=== PATIENT | female | born 1945 | race Caucasian/White ===

== ENCOUNTER 2023-08-25 22:58 | Emergency (ER) | payer MEDICARE, SELFPAY ==
--- NOTE | 2023-08-25 | ECG_ITS ---
Test Reason : FALL Blood Pressure : / mmHG Vent. Rate : 071 BPM Atrial Rate : 071 BPM P-R Int : 200 ms QRS Dur : 080 ms QT Int : 374 ms P-R-T Axes : 013 -15 -07 degrees QTc Int : 406 ms Normal sinus rhythm Minimal voltage criteria for LVH, may be normal variant ( R in aVL ) Borderline ECG No previous ECGs available Referred By: Generic ED Physician Electronically Signed By:RASTA LYNCH
--- NOTE | ~2023-08-25 | CT_ITS ---
EXAMINATION: CT HEAD WITHOUT CONTRAST CT CERVICAL SPINE WITHOUT CONTRAST CLINICAL INFORMATION: Fall. Pain. COMPARISON: None available. TECHNIQUE: Contiguous axial imaging was performed through the head and cervical spine without intravenous administration of contrast. Sagittal and coronal reformatted images also obtained. This CT examination was performed using dose optimization techniques as appropriate, variously including the following: *Automated exposure control *Adjustment of mA and/or kV according to patient size (this includes techniques or standardized protocols for targeted exams where dose is matched to indication/reason for exam; i.e. extremities or head) *Use of iterative reconstruction technique DLP: 566 mGy-cm FINDINGS: There is cerebral volume loss with prominence of the lateral and the third ventricles. The cortical sulci are widened appropriately. The fourth ventricle and basal cisterns are normally outlined. There is moderate bilateral periventricular and central white matter diminished attenuation. There is no acute territorial defect, hemorrhage or midline shift. The extra-axial spaces are unremarkable. Calvarium: Intact. Maxillofacial sinuses and mastoids: Clear as visualized. Cervical spine: The alignment is normal. There is diffuse mild cervical disc degenerative change with loss of disc space, endplate change and posterior osteophytes associated with diffuse facet osteoarthritic hypertrophic change with multilevel minimal spinal canal and mild neuroforaminal narrowing. The bony structures are osteopenic. No fracture is seen. There is a 1.3 cm low-density left thyroid nodule. The visualized upper lung lyle are clear. CT/CT cervical spine wo IV con IMPRESSION: 1. No acute intracranial process seen. 2. Moderate cerebral volume loss with chronic small vessel ischemic changes. 3. There is no acute cervical spine fracture or malalignment. There are degenerative disc changes and facet joint arthropathy throughout cervical spine.
--- NOTE | ~2023-08-25 | XR_ITS ---
EXAMINATION: XR SHOULDER, LEFT CLINICAL INFORMATION: Fall. Pain. COMPARISON: None available. TECHNIQUE: AP external rotation, Grashey, scapular Y, and axillary views of the left shoulder. FINDINGS: The bone mineralization is normal. There is mild to moderate acromioclavicular degenerative change with loss of joint space. There is a bony projection from the inferior acromion on. No fracture is seen. Soft tissues are unremarkable. XR/XR shoulder LT min 2V IMPRESSION: 1. No fracture or dislocation. 2. Acromioclavicular degenerative change.
[2023-08-25 23:10] VITALS: BP 138/80; PULSE 79; O2SAT 95
[2023-08-25 23:17] VITALS: BP 138/79; PULSE 72; RESP 18; O2SAT 95; BMI 22.6
[2023-08-25 23:27] VITALS: TEMP 36.8
[2023-08-25 23:27] LABS: MANUAL DIFF FLAG NO
[2023-08-25 23:28] LABS: Basophils Percent Auto 0.2 % (0-2); Eosinophils Absolute Auto 0.1 X10*3/uL (0.0-0.4); Eosinophils Percent Auto 0.6 % (0-4); Hematocrit 38.5 % (37.0-47.0); Hemoglobin 12.8 g/dl (12.0-16.0); Imm Gran Abs Auto 0.03 X10*3/uL (0.00-0.03); Imm Gran Pct Auto 0.3 % (0.0-0.4); Lymphocytes Absolute Auto 1.6 X10*3/uL (1.2-4.9); Lymphocytes Percent Auto 17.4 % (20-40); Mean Corpuscular HGB Conc 33.2 g/dl (31.0-35.0); Mean Corpuscular Hemoglobin 29.6 pg (27.0-33.0); Mean Corpuscular Volume 88.9 fL (80.0-98.0); Mean Platelet Volume 9.4 fL (9.4-12.3); Monocytes Absolute Auto 0.6 X10*3/uL (0.1-1.2); Monocytes Percent Auto 6.1 % (2-11); Neutrophils Absolute Auto 6.9 x10*3/uL (2.0-8.3); Neutrophils Percent Auto 75.4 % (45-73); Platelet Count 202 X10*3/uL (160-400); Red Blood Count 4.33 X10*6/uL (4.20-5.50); Red Cell Distribution Width 12.9 % (11.0-16.0); White Blood Count 9.1 X10*3/uL (4.8-10.8)
--- OUTSIDE RECORDS SUMMARY | 2023-08-25 23:33 | XMS_ITS | Continuity of Care Document ---
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 Name Role Phone Rosa Mattson NP Primary Care Physician [phone] Encounter [facility] Date(s): 03/22/23 - 03/23/[address] [address]- Encounter Diagnosis UTI (urinary tract infection)(Final) - 03/23/23 Discharge Disposition: A-D/C Home Attending Physician: Kvng Bethea MD Admitting Physician: Kvng Bethea MD Referring Physician: Not on Staff, Referring MD Allergies, Adverse Reactions, Alerts Substance Reaction Severity Status iodine Allergy to penicillin Active Immunizations Given and Recorded Vaccine Date Status Refusal Reason SARS-CoV-2 (COVID-19) mRNA BNT-162b2 vac 10/27/20 Given Medications ARIPiprazole 2 mg oral tablet 2 mg, 1, tablet, By Mouth, Daily, Maintenance, 03/23/23 8:07:00 EDT, Partial fill upon patient request if the prescription is for a schedule II opioid drug. Start Date: 03/23/23 Status: Ordered cefpodoxime 200 mg oral tablet 1 tablet = 200 mg, By Mouth, 2 times a day, for 10 days, # 20 tablet, 0 Refills, Acute 04/02/23 1:02:00 EDT, 03/23/23 1:02:00 EDT, Tablet, Partial fill upon patient request if the prescription is fora schedule II opioid drug. Start Date: 03/23/23 Stop Date: 04/02/23 Status: Ordered lovastatin 40 mg oral tablet 1 tablet = 40 mg, By Mouth, Daily at bedtime, Maintenance, 03/23/23 8:07:00 EDT, Tablet, Partial fill upon patient request if the prescription is for a schedule II opioid drug. Start Date: 03/23/23 Status: Ordered sertraline 25 mg oral tablet 1 tablet = 25 mg, By Mouth, Daily, Maintenance, 03/23/23 8:08:00 EDT, Tablet, Partial fill upon patient request if the prescription is for a schedule II opioid drug. Start Date: 03/23/23 Status: Ordered Results Radiology Reports * Exam Date Time Procedure Performing Provider Status 03/22/23 10:27 PM Chest 2 Views Frontal and Lat Juan Connolly; Auth (Verified) Notes: (Chest 2 Views Frontal and Lat) Reason For Exam: Shortness of Breath RESULT: Chest 2 Views Frontal and Lat Chest 2 Views Frontal and Lat Hx of Present Illness: ambulating, fall from standing, lost balance hit occiput with hematoma, +blood but controlled, no loc, no thinners; Reason: Shortness of Breath; Clinical Question(s): CHF COMPARISON: None. FINDINGS: LINES AND TUBES: None. LUNGS AND PLEURA: Clear lungs. Normal pulmonary vascularity. No pleural effusion. No pneumothorax. HEART, MEDIASTINUM AND JOHN: Heart is normal in size. Normal mediastinal and hilar contour. BONES AND SOFT TISSUES: No acute abnormality. IMPRESSION: No acute abnormality. WSN: [id number] Ordering Physician: Dez June Dictated By: Willy Vaughn MD Dictated Date/Time: 03/22/23 10:38 p Reviewed By: Willy Vaughn MD Signed By: Willy Vaughn MD Signed Date/Time: 03/22/23 10:38 pm Transcribed By: ANDRAE Transcribed Date/Time: 03/22/23 10:38 pm * Exam Date Time Procedure Performing Provider Status 03/22/23 6:[address] Cervical Spine W/O Contrast Domonique Carrillo; Auth (Verified) Notes: (CT Cervical Spine W/O Contrast) Reason For Exam: Neck trauma, dangerous injury mechanism;Trauma RESULT: CT Cervical Spine W/O Contrast CT Head/Brain W/O Contrast, CT Cervical Spine W/O Contrast INDICATION: Hx of Present Illness: ambulating, fall from standing, lost balance hit occiput with hematoma, +blood but controlled, no loc, no thinners; Reason: Trauma; Clinical Question(s): Subarachnoid Hemorrhage; Order Comment: TECHNIQUE: Noncontrast head CT using axial technique was reconstructed in axial and coronal planes.Noncontrast spiral CT through the cervical spine was formatted in 3 planes. Automatic tube modulation was used for the cervical spine and iterative dose reconstruction was used for both the head and cervical spine to optimize scan parameters and image quality. CTDIvol Body: 9.60 mGy, DLP Body: 263 mGy*cm. CTDIvol Head: 39.60 mGy, DLP Head: 672 mGy*cm. COMPARISON: None. FINDINGS: Business Analyst Project Manager View Findings, Lines and Tubes: None. BRAIN AND EXTRA-AXIAL SPACES: No parenchymal hemorrhage, midline shift, or mass effect. Paredes-white matter differentiation is wellpreserved. No acute infarct. Mild prominence of the ventricles and sulci consistent with parenchymal volume loss. Moderate low-density white matter changes. No subarachnoid hemorrhage. No subdural or epidural collection. CALVARIUM, SKULL BASE, AND SOFT TISSUES: No fractures or suspicious bony lesions. The paranasal sinuses and mastoid air cells are clear. Visualized orbits and globes are intact. The extracranial soft tissues are unremarkable. CERVICAL SPINE: There is no evidence of acute fracture or subluxation. Mild multilevel degenerative disc space narrowing and end plate irregularity. OTHER BONES: No acute abnormality. CERVICAL SOFT TISSUES AND LUNG APICES: Normal soft tissues. Visualized lung apices are clear. IMPRESSION: No acute abnormality of the head or cervical spine. WSN: [id number] Ordering Physician: Dez June Dictated By: Anastasiya Thornton MD Dictated Date/Time: 03/22/23 6:52 pm Reviewed By: Anastasiya Thornton MD Signed By: Anastasiya Thornton MD Signed Date/Time: 03/22/23 6:52 pm Transcribed By: ANDRAE Transcribed Date/Time: 03/22/23 6:34 pm * Exam Date Time Procedure Performing Provider Status 03/22/23 6:[address] Head/Brain W/O Contrast Shana Carrillo; Auth (Verified) Notes: (CT Head/Brain W/O Contrast) Reason For Exam: Trauma RESULT: CT Head/Brain W/O Contrast CT Head/Brain W/O Contrast, CT Cervical Spine W/O Contrast INDICATION: Hx of Present Illness: ambulating, fall from standing, lost balance hit occiput with hematoma, +blood but controlled, no loc, no thinners; Reason: Trauma; Clinical Question(s): Subarachnoid Hemorrhage; Order Comment: TECHNIQUE: Noncontrast head CT using axial technique was reconstructed in axial and coronal planes.Noncontrast spiral CT through the cervical spine was formatted in 3 planes. Automatic tube modulation was used for the cervical spine and iterative dose reconstruction was used for both the head and cervical spine to optimize scan parameters and image quality. CTDIvol Body: 9.60 mGy, DLP Body: 263 mGy*cm. CTDIvol Head: 39.60 mGy, DLP Head: 672 mGy*cm. COMPARISON: None. FINDINGS: Business Analyst Project Manager View Findings, Lines and Tubes: None. BRAIN AND EXTRA-AXIAL SPACES: No parenchymal hemorrhage, midline shift, or mass effect. Paredes-white matter differentiation is wellpreserved. No acute infarct. Mild prominence of the ventricles and sulci consistent with parenchymal volume loss. Moderate low-density white matter changes. No subarachnoid hemorrhage. No subdural or epidural collection. CALVARIUM, SKULL BASE, AND SOFT TISSUES: No fractures or suspicious bony lesions. The paranasal sinuses and mastoid air cells are clear. Visualized orbits and globes are intact. The extracranial soft tissues are unremarkable. CERVICAL SPINE: There is no evidence of acute fracture or subluxation. Mild multilevel degenerative disc space narrowing and end plate irregularity. OTHER BONES: No acute abnormality. CERVICAL SOFT TISSUES AND LUNG APICES: Normal soft tissues. Visualized lung apices are clear. IMPRESSION: No acute abnormality of the head or cervical spine. WSN: [id number] Ordering Physician: Dez June Dictated By: Anastasiya Thornton MD Dictated Date/Time: 03/22/23 6:52 pm Reviewed By: Anastasiya Thornton MD Signed By: Anastasiya Thornton MD Signed Date/Time: 03/22/23 6:52 pm Transcribed By: ANDRAE Transcribed Date/Time: 03/22/23 6:34 pm Vital Signs Most recent to oldest [Reference Range]: 1 2 3 Oxygen Saturation [94-100 %] 97 % (03/23/23 7:30 AM) 99 % (03/23/23 4:15 AM) 97 % (03/23/23 1:01 AM) Pulse Rate [55-90 bpm] 95 bpm *H* (03/23/23 7:30 AM) 85 bpm (03/23/23 4:15 AM) 87 bpm (03/23/23 1:01 AM) Blood Pressure [90-138/55-84 mm Hg] 109/85mm Hg (03/23/23 7:30 AM) 142/67mm Hg *H* (03/23/23 4:15 AM) 131/68mm Hg (03/23/23 1:01 AM) Respiratory Rate [16-30 br/min] 18 br/min (03/23/23 7:30 AM) 19 br/min (03/23/23 4:15 AM) 18 br/min (03/23/23 1:01 AM) Temperature [96.8-100.4 DegF] 97.9 DegF (03/23/23 1:01 AM) 98.5 DegF (03/22/23 5:14 PM) Mode of Delivery (Oxygen) Room air (03/23/23 7:30 AM) Room air (03/23/23 4:15 AM) Room air (03/23/23 1:01 AM) Blood pressure sites Arm, right (03/23/23 7:30 AM) Arm, right (03/23/23 4:15 AM) Arm, right (03/23/23 1:01 AM) Temperature Route Oral (03/23/23 1:01 AM) Oral (03/22/23 5:14 PM) EKG study * Event Display: EKG Authored Date: * Event Display: ECG 12-Lead Authored Date: Please click on pdf link to open report * Event Display: ECG 12-Lead Authored Date: Ventricular Rate: 82 BPM Atrial Rate: 82 BPM P-R Interval: 186 ms QRS Duration: 74 ms Q-T Interval: 370 ms QTC Calculation(Bazett): 432 ms P Dundas: 0 degrees R Dundas: -12 degrees T Dundas: -1 degrees Normal sinus rhythm Minimal voltage criteria for LVH, may be normal variant Borderline ECG When compared with ECG of 22-MAR-2023 17:38, MANUAL COMPARISON REQUIRED, DATA IS UNCONFIRMED Confirmed by HARMONY BEDOLLA MD () on 03/23/2023 10:18:09 AM [place]: HARMONY BEDOLLA MD * Event Display: ECG 12-Lead Authored Date: [id number] Please click on pdf link to open report * Event Display: ECG 12-Lead Authored Date: [id number] Ventricular Rate: 83 BPM Atrial Rate: 83 BPM P-R Interval: 192 ms QRS Duration: 70 ms Q-T Interval: 366 ms QTC Calculation(Bazett): 430 ms P Dundas: 9 degrees R Dundas: -14 degrees T Dundas: -4 degrees Normal sinus rhythm Minimal voltage criteria for LVH, may be normal variant ( R in aVL ) Borderline ECG No previous ECGs available Confirmed by HARMONY BEDOLLA MD () on 03/23/2023 10:19:12 AM [place]: HARMONY BEDOLLA MD Note * Kvng Bethea MD: PERFORM Event Display: Patient Education Leaflets Authored Date: [id number] Bladder Infection,??Female (Adult) ?? [id number] Bladder Infection,??Female (Adult) Urine normally doesn't have any germs (bacteria) in it. But bacteria can get into the urinary tractfrom the skin around the rectum. Or they can travel in the blood from other parts of the body. Oncethey are in your urinary tract, they can cause infection in these areas: ??? The urethra (urethritis) ??? The bladder (cystitis) ??? The kidneys (pyelonephritis) The most common place for an infection is in the bladder. This is called a bladder infection. This is one of the most common infections in women because women have a shorter urethra than men. Bacteria have a shorter distance to travel to reach the bladder.. Women who have gone through menopause also lose the protection from estrogen that lowers the chance of getting a UTI. And some women are at higher risk because of their genes. Most bladder infections are easily treated. They are not serious unless the infection spreads to the kidney. The terms bladder infection, UTI, and cystitis are often used to describe the same thing. But they are not always the same. Cystitis is an inflammation of the bladder. The??most common cause of cystitis is an infection. Symptoms The infection causes inflammation in the urethra and bladder. This causes many of the symptoms. Themost common symptoms of a bladder infection are: ??? Pain or burning when urinating ??? Having to urinate more often than normal ??? Urgent need to urinate ??? Only a small amount of urine comes out ??? Blood in urine ??? Belly (abdominal) discomfort. This is often in the lower belly above the pubic bone. ??? Lower back pain ??? Cloudy urine ??? Strong- or bad-smelling urine ??? Unable to urinate(urinary retention) ??? Unable to hold urine in (urinary incontinence) ??? Fever ??? Loss of appetite ??? Confusion (in older adults) ?? Causes Bladder infections are not contagious. You can't get one from someone else, from a toilet seat, or from sharing a bath. The most common cause of bladder infections is bacteria from the bowels. The bacteria get onto the skin around the opening of the urethra. From there, they can get into the urine. Then they travel upto the bladder, causing inflammation and infection. This often happens because of: ??? Wiping incorrectly after urinating. Always wipe from front to back. ??? Bowel incontinence ??? . Duringpregnancy urinary tract changes raise the risk for infection. ??? Procedures such as having a catheter put in ??? Older age ??? Not emptying your bladder. This can give bacteria a chance to grow in your urine. ??? Fluid loss (dehydration) ??? Constipation ??? Having sex ??? Using a diaphragm for control? Treatment Bladder infections are diagnosed by a urine test and urine culture. They are treated with antibiotics. They often??clear up quickly without problems. Treatment helps prevent a more serious kidney infection. ?? Medicines Medicines can help in the treatment of a bladder infection: ??? Take antibiotics until they are used up, even if you feel better. It's important to finish them to make sure the infection has cleared.??? You can use acetaminophen or ibuprofen for pain, fever, or discomfort, unless another medicine was prescribed. If you have long-term (chronic) liver or kidney disease, talk with your healthcare??provider before using??these medicines. Also talk with your provider if you've ever had a stomach ulcer or GI (gastrointestinal) bleeding, or are taking blood-thinner medicines. ??? If you are given??phenazopydridine to reduce burning with urination, it will make your urine a bright orange color. This can stain clothing. ?? Care and prevention These self-care steps can help prevent future infections: ??? Drink plenty of fluids. This helps toprevent dehydration and flush out your bladder. Do this??unless you must restrict fluids for other health reasons, or your healthcare provider told you not to. ??? Clean yourself correctly after going to the bathroom. Wipe from front to back after using the toilet. This helps prevent the spread of bacteria. ??? Urinate more often. Don't try to hold urine in for a long time. ??? Wear loose-fittingclothes and cotton underwear. Don't wear tight- fitting pants. ??? Improve your diet and prevent constipation. Eat more fresh fruits and vegetables, and??fiber. Eat less junk foods and fatty foods. ??? Don't have sex until your symptoms are gone. ??? Don't have caffeine, alcohol, and spicy foods. These can irritate your bladder. ??? Urinate right after you have sex to flush out your bladder. ??? If you use control pills and have frequent bladder infections, discuss it with your healthcare provider. ?? Follow-up care Call your healthcare provider if all symptoms are not gone after 3 days of treatment. This is especially important if you have repeat infections. If a culture was done, you will be told if your treatment needs to be changed. If directed, you cancall??to find out the results. If X-rays were done, you will be told if the results will affect your??treatment. ?? Call 911 Call 911 if any of the following occur: ??? Trouble breathing ??? Hard to wake up or??confusion ???Fainting (loss of consciousness) ??? Fast heart rate ?? When to get medical advice Call your healthcare provider right away if any of these occur: ??? Fever of 100.4??F (38.0??C) or higher, or as directed by your healthcare provider ??? Symptoms are not better??after 3 days of treatment ??? Symptoms get worse or you have new symptoms ??? Back or belly pain that gets worse ??? Repeated vomiting, or unable to keep medicine down ??? Weakness or dizziness ??? Vaginal discharge ??? Pain, redness, or swelling in the outer vaginal area (labia) ?? Last Reviewed Date: 2021 ?? [id number] [employer]. All rights reserved. This information is not intended as a substitute for professional medical care. Always follow your healthcare professional's instructions. ?? Patient Care team information Care Team Personnel Name: Rosa Mattson NP Position: [facility] Outreach Member Role: PCP Address: Address: [address] [facility] [place] [address]- Name: Aislinn Cohn RN Position: [facility] ED RN W/OE and Tasks Member Role: Patient Care Provider Name: Juli Bearden Position: [facility] ED [facility] Name: Kvng Bethea MD Position: [facility] Resident Member Role: Admitting Physician Address: Address: [address] [place] [address] [place] [address]-
--- OUTSIDE RECORDS SUMMARY | 2023-08-25 23:33 | XMS_ITS | Patient Health Record ---
Author Name Unknown 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 Name Role Phone Twila VALE, Rosa Primary Care Provider Johnathan Coffey Unavailable [phone] ALLERGIES Allergen (clinical drug ingredient) Drug/Non Drug Allergy documented on EMR Reaction Allergy Type Onset Date Status Iodine redness Drug Allergy Active Penicillin redness Drug Allergy Active latex redness Drug Allergy Active REASON FOR REFERRAL No Information MEDICATIONS Medication SIG (Take, Route, Frequency, Duration) Notes Start Date End Date Status Vitamin D 400 UNIT as directed Orally Active Calcium 500mg Twice a day vitamin d in calcium chews Active Lovastatin 40 MG 1 tablet with a meal Orally Once a day for 30 day(s) Active IMMUNIZATIONS Vaccine Route Administration Date Status Comme nts COVID-19 Pfizer BioNTech Vaccine Unknown 06/20/2021 Administered 1st 10/06/20 2nd 10/27/20 3rd 06/20/21 SOCIAL HISTORY Tobacco Use: Social History Observation Description Date Details (start date - stop date) Never Smoker NA - NA Sex Assigned At : Social History Observation Description Sex Assigned At Unknown Tobacco Use/Smoking Question Answer Notes Are you a: nonsmoker Additional Findings: Tobacco Non-User Current no n-smoker Alcohol Screen Question Answer Notes Did you have a drink containing alcohol in the p ast year? No Points 0 Interpretation Negative Tobacco use other than smoking: Question Answer Notes Are you an other tobacco user? No PROBLEMS Problem Type ICD Code Onset Dates Problem Status W/U Status Risk SNOMED Code Notes Problem Tinea unguium (B35.1) Active confirmed Tinea unguium (155442553) Problem Hallux valgus (acquired), left foot (M20.12) Active confirmed Acquired hallux valgus (31078830) Problem Hallux valgus (acquired), right foot (M20.11) Active confirmed Acquired hallux valgus (07359566) Problem Other hammer toe(s) (acquired), right foot (M20.41) Active confirmed Acquired hammer toe of right foot (19962622633 17687) Problem Venous insufficiency (I87.2) Active confirmed 60693479 Problem Dementia without behavioral disturbance, unspecified dementia type (F03.90) Active confirmed Dementia (79629508) VITAL SIGNS Blood pressure diastolic 80 mm Hg 02/09/2023 Height 4 ft 11 in in 02/09/2023 Blood pressure systolic 128 mm Hg 02/09/2023 Weight 160 lbs 02/09/2023 BMI 32.31 kg/m2 02/09/2023 Encounters Encounter Location Date Provider Diagnosis [facility] [address] [address] 02/09/2023 Johnathan Noble Tinea unguium B35.1 ; Pain in right toe(s) M79.674 ; Pain in left toe(s) M79.675 ; Hallux valgus (acquired), left foot M20.12 ; Hallux valgus (acquired), right foot M20.11 ; Other hammer toe(s) (acquired), right foot M20.41 ; Venous insufficiency I87.2 ; Tinea pedis B35.3 and Dementia without behavioral disturbance, unspecified dementia type F03.90 ASSESSMENTS Encounter Date Diagnosis Assessment Notes Treatment Notes Treatment Clinical Notes 02/09/2023 Tinea unguium (ICD-1 0 - B35.1) 02/09/2023 Pain in right toe(s) (ICD-10 - M79.674) 02/09/2023 Pain in left toe(s) (ICD-10 - M79.675) 02/09/2023 Hallux valgus (acquired), left foot (ICD-10 - M20.12) 02/09/2023 Hallux valgus (acquired), right foot (ICD-10 - M20.11) 02/09/2023 Other hammer toe(s) (acquired), right foot (ICD-10 - M20.41) 02/09/2023 Venous insufficiency (ICD-10 - I87.2) 02/09/2023 Tinea pedis (ICD-10 - B35.3) 02/09/2023 Dementia without behavioral disturbance, unspecified dementia type (ICD-10 - F03.90) PLAN OF TREATMENT Pending Test Test Name Order Date X ray : Foot, left 3V 02/08/2022 X ray : Foot, right 3V 02/08/2022 [id number] NAIL, 1-09/06/2013 [id number] NAIL, -09/19/2014 [id number] NAIL, -09/25/2015 [id number] NAIL, -09/15/2016 [id number] NAIL, -06/22/2017 Next Appt Details Provider Name:Johnathan Noble, 02/08/2024 11:00:00 AM, [address] [place] [address], [id number], Insurance Providers Payer Name Payer Address Payer Phone Subscriber Number Group Number Insured Name Patient Relationship to Insured Coverage Start Date Coverage End Date Medicare National Govt [facility] [address] [place] [address] [phone] [id number] Amaya Harley Self - patient is the insured [facility] [id number] [address] [place] [address] [id number] Andres Harley Spouse - patient is the spouse of the insured MEDICAL (GENERAL) HISTORY Medical History History ICD Code Arthritis Back pain breast cancer Hiatal hernia Measles Chicken pox Broken bones Dementia Surgical History Surgery Date(Month/Year) mastoidectomy 02/2012 colonoscopy & 09/06 lumpectomy 12/1993 Mammogram Screening 10/2021 Hospitalization History Reason Date(Month/Year) [facility] ER- kidney stones 09/22/20 Patient went to [facility] for low back pa in. 05/2014
--- OUTSIDE RECORDS SUMMARY | 2023-08-25 23:33 | XMS_ITS | Continuity of Care Document ---
Author Name Unknown Organization [facility] ter Address [address] [place] [id number]- Care Team Providers Care Plate Printer Name Role Phone Not on Staff, PCP Primary Care Physician Unavail able Encounter [facility] Date(s): 08/20/23 - 08/21/[address] [address]- Discharge Disposition: A-D/C AMA Attending Physician: Jaleel Lake DO Admitting Physician: Jaleel Lake DO Referring Physician: Not on Staff, Referring MD [...] opioid drug. Start Date: 03/23/23 Status: Ordered lovastatin 40 mg oral tablet [...] Exam Date Time Procedure Performing Provider Status 08/20/23 8:[address] Cervical Spine W/O Contrast Zandra Gamino; Auth (Verified) Notes: (CT Cervical Spine W/O Contrast) Reason For Exam: Neck trauma, dangerous injury mechanism;Other: RESULT: CT Cervical Spine W/O Contrast CT Head/Brain W/O Contrast, CT Cervical Spine W/O Contrast Hx of Present Illness: fall; Reason: Trauma; Clinical Question(s): Hematoma. TECHNIQUE: Incremental CT without contrast through the head was formatted in axial and coronal planes. Spiral CT without contrast through the cervical spine was formatted in 3 planes. Weight-based protocol using automatic tube modulation was used to optimize exposure parameters. COMPARISON: 06/01/2023, 03/31/2023. FINDINGS: Mild motion artifact. BRAIN and EXTRA-AXIAL SPACES: No parenchymal hemorrhage, midline shift or mass effect. Paredes-white matter differentiation is well preserved. No acute infarct. Negative insular ribbon sign. Atherosclerotic vascular calcification ofthe carotid arteries but negative hyperdense vessel sign. Mild prominence of the ventricles and sulci consistent with parenchymal volume loss. Moderate low-density white matter changes. No subarachnoid hemorrhage, subdural or epidural collections. CALVARIUM, SKULL BASE AND SOFT TISSUES: No fractures or suspicious bony lesions. The paranasal sinuses and mastoid air cells are clear. Status-post bilateral lens extraction. The extracranial soft tissues are unremarkable. CERVICAL SPINE: No fracture. No acute osseous abnormalities. Small sclerotic bone island in the left first rib, unchanged. Moderate, multilevel degenerative changes of the visualized spine. Grade 1 anterolisthesis of C4 on C5. Grade 1 anterolisthesis of C6 on C7. Normal alignment. No locked or perched facet. Intervertebral discs are normal. OTHER BONES: No acute abnormality. CERVICAL SOFT TISSUES AND LUNG APICES: Clear lung apices. Heterogeneous thyroid gland with an enlarged left lobe. There is a similar-appearing 2.8 cm (craniocaudal dimension) ill-defined hypodensity in the left lobe of the thyroid gland (304:35). IMPRESSION: Mild motion artifact. No acute intracranial abnormality. No acute fracture of the cervical spine. Similar appearing ill-defined hypodensity in the left lobe of the thyroid gland. Further evaluationand characterization with nonurgent ultrasound recommended if not previously performed. I have personally reviewed the images and I agree with this report. WSN: [id number] Ordering Physician: Jaleel Lake Dictated By: Humphrey Medina MD Dictated Date/Time: 08/20/23 9:09 pm Reviewed By: Hany Nunez MD Signed By: Hany Nunez MD Signed Date/Time: 08/20/23 9:14 pm Transcribed By: ANDRAE Transcribed Date/Time: 08/20/23 8:41 pm * Exam Date Time Procedure Performing Provider Status 08/20/23 8:[address] Head/Brain W/O Contrast Zandra Rodriguez; Auth (Verified) Notes: (CT Head/Brain W/O Contrast) Reason For Exam: Trauma RESULT: CT Head/Brain W/O Contrast CT Head/Brain W/O Contrast, CT Cervical Spine W/O Contrast Hx of Present Illness: fall; Reason: Trauma; Clinical Question(s): Hematoma. TECHNIQUE: Incremental CT without contrast through the head was formatted in axial and coronal planes. Spiral CT without contrast through the cervical spine was formatted in 3 planes. Weight-based protocol using automatic tube modulation was used to optimize exposure parameters. COMPARISON: 06/01/2023, 03/31/2023. FINDINGS: Mild motion artifact. BRAIN and EXTRA-AXIAL SPACES: No parenchymal hemorrhage, midline shift or mass effect. Paredes-white matter differentiation is well preserved. No acute infarct. Negative insular ribbon sign. Atherosclerotic vascular calcification ofthe carotid arteries but negative hyperdense vessel sign. Mild prominence of the ventricles and sulci consistent with parenchymal volume loss. Moderate low-density white matter changes. No subarachnoid hemorrhage, subdural or epidural collections. CALVARIUM, SKULL BASE AND SOFT TISSUES: No fractures or suspicious bony lesions. The paranasal sinuses and mastoid air cells are clear. Status-post bilateral lens extraction. The extracranial soft tissues are unremarkable. CERVICAL SPINE: No fracture. No acute osseous abnormalities. Small sclerotic bone island in the left first rib, unchanged. Moderate, multilevel degenerative changes of the visualized spine. Grade 1 anterolisthesis of C4 on C5. Grade 1 anterolisthesis of C6 on C7. Normal alignment. No locked or perched facet. Intervertebral discs are normal. OTHER BONES: No acute abnormality. CERVICAL SOFT TISSUES AND LUNG APICES: Clear lung apices. Heterogeneous thyroid gland with an enlarged left lobe. There is a similar-appearing 2.8 cm (craniocaudal dimension) ill-defined hypodensity in the left lobe of the thyroid gland (304:35). IMPRESSION: Mild motion artifact. No acute intracranial abnormality. No acute fracture of the cervical spine. Similar appearing ill-defined hypodensity in the left lobe of the thyroid gland. Further evaluationand characterization with nonurgent ultrasound recommended if not previously performed. I have personally reviewed the images and I agree with this report. WSN: [id number] Ordering Physician: Jaleel Lake Dictated By: Humphrey Medina MD Dictated Date/Time: 08/20/23 9:09 pm Reviewed By: Hany Nunez MD Signed By: Hany Nunez MD Signed Date/Time: 08/20/23 9:14 pm Transcribed By: ANDRAE Transcribed Date/Time: 08/20/23 8:41 pm Vital Signs Most recent to oldest [Reference Range]: 1 2 3 Oxygen Saturation [94-100 %] 100 % (08/21/23 12:14 AM) 98 % (08/20/23 10:57 PM) 99 % (08/20/23 7:56 PM) Pulse Rate [55-90 bpm] 88 bpm (08/21/23 12:14 AM) 80 bpm (08/20/23 10:57 PM) 82 bpm (08/20/23 7:56 PM) Blood Pressure [90-138/55-84 mm Hg] 121/103mm Hg (08/21/23 12:14 AM) 115/49mm Hg (08/20/23 10:57 PM) 141/58mm Hg *H* (08/20/23 7:56 PM) Respiratory Rate [16-30 br/min] 18 br/min (08/21/23 12:14 AM) 18 br/min (08/20/23 10:57 PM) 18 br/min (08/20/23 7:56 PM) Temperature [96.8-100.4 DegF] 97.5 DegF (08/21/23 12:14 AM) 98.1 DegF (08/20/23 10:57 PM) 98.1 DegF (08/20/23 7:56 PM) Mode of Delivery (Oxygen) Room air (08/21/23 12:14 AM) Room air (08/20/23 10:57 PM) Room air (08/20/23 7:56 PM) Blood pressure sites Arm, right (08/21/23 12:14 AM) Arm, left (08/20/23 10:57 PM) Arm, left (08/20/23 7:56 PM) Temperature Route Oral (08/21/23 12:14 AM) Oral (08/20/23 10:57 PM) Oral (08/20/23 7:56 PM) Social History Social History Type Response Sex Female Note * Jaleel Lake DO: PERFORM, SIGN, VERIFY Event Display: Patient Education Handout Authored Date: * Jaleel Lake DO: PERFORM Event Display: Patient Education Leaflets Authored Date: Fall??Prevention ?? [id number] Fall??Prevention Falls often take place due to slipping, tripping, or losing your balance. Millions of people fall every year and injure themselves.??Among older adults in the [place] falls are the most common cause oftraumatic brain injuries. Every 20 minutes, an older adult dies from a fall. Here are ways to reduce your risk of falling again: ??? Think about your fall. Was there anything that caused your fall that can be fixed, removed, or replaced? Make your home safe by keeping walkways clear of objects you may trip over, such as electrical cords. ??? Use nonslip pads under rugs. Don't use area rugs orsmall throw rugs. ??? Use nonslip mats in bathtubs and showers. ??? Hang grab rails by the toilet and inside and outside the shower. ??? Install handrails and lights on staircases. The handrails should be on both sides of the stairs. ??? Use night lights. ??? Don't walk in poorly lit areas. ??? Don't stand on chairs or wobbly ladders. ??? Use care when reaching overhead or looking up.??This position can cause a loss of balance. ??? Be sure your shoes fit well, are in good condition, and have non slip bottoms.? Wear shoes both inside and outside of your home. Don't go barefoot or wear slippers. ??? Be cautious when going up and down stairs, curbs, and when walking on uneven sidewalks. ??? If your balance is poor, consider using a cane or walker. Talk with your healthcare provider abouthaving a balance assessment. ??? If your fall was related to alcohol use, stop or limit alcohol intake.??Ask your provider for help if you think you may overuse alcohol and can't stop. ??? If your fall was related to use of sleeping medicines, talk with your provider about this.??You may need to reduce your dosage at bedtime if you wake up during the night to go to the bathroom.? To reducethe need for nighttime bathroom trips: o Don't drink fluids for several hours before going to bed oEmpty your bladder before going to bed o Men can keep a urinal at the bedside ??? Stay as active asyou can. Balance, flexibility, strength, and endurance all come from exercise. They all play a rolein preventing falls. Ask your provider which types of activity are right for you. Try to do some type of exercise every day. ??? Get your eyes checked once a year or more often if your vision changes??? If you have pets, know where they are before you stand up or walk so you don't trip over them. ??? Go over all your medicines with a pharmacist or other provider. This is to see if any of them could make you more likely to fall. Have this type of medicine review at least once every year. ??? Ifyour provider advises a new medicine, ask if the side effects will affect your balance. ??? Don't move quickly from one position to another. For instance, don't stand up fast from sitting. This can cause dizziness and may lead to a fall. ??? Sit down when putting on pants, socks, and shoes. This will make you less likely to lose your balance and fall. ??? Always let your provider know if you havefallen since your last visit. ??? Contact your provider right away if you're having balance problems or falling more often. Last Reviewed Date: 2021 ?? [id number] [employer]. All rights reserved. This information is not intended as a substitute for professional medical care. Always follow your healthcare professional's instructions. ?? Patient Care team information Care Team Personnel Name: Not on Staff, PCP Position: [facility] Physician (General Medicine) Member Role: PCP Name: *[facility], ED Attending Position: [facility] ED Attendings Patient Name: Jaleel Lake DO Position: [facility] ED Medicine MD Member Role: ED Attending Physician Address: Address: [address] [place] [address] Name: Karli Araujo RN Position: [facility] ED RN W/OE and Tasks Member Role: Patient Care Provider Name: Adrianne Pandya Position: [facility] ED TA [facility] Member Role: Patient Care Provider Care Team Related Persons Name: TEJAL DAS Address: home [address] [place] [address] Name: ROXY BOLES Address: home [address] [place] [address]
--- OUTSIDE RECORDS SUMMARY | 2023-08-25 23:33 | XMS_ITS | Continuity of Care Document ---
Author Name Unknown Organization [facility] ter Address [address] [place] [id number]- Care Team Providers Care Marketing Representative Name Role Phone Rosa Mattson NP Primary Care Physician Encounter [facility] [place] Date(s): 06/01/23 - 06/01/[address] [address]- Encounter Diagnosis Fall, accidental(Final) - 06/01/23 Dementia(Final) - 06/01/23 Discharge Disposition: A-D/C Home Attending Physician: Dez June MD Admitting Physician: Dez June MD Referring Physician: Not on Staff, Referring [...] Exam Date Time Procedure Performing Provider Status 06/01/23 3:[address] Pelvis W/O Contrast Michele Chavez; [facility] [place] (Verified) Notes: (CT Pelvis W/O Contrast) Reason For Exam: Pelvic trauma;Other: RESULT: CT Pelvis W/O Contrast CT Thoracic Spine W/O Contrast, CT Lumbar Spine W/O Contrast, CT Pelvis W/O Contrast INDICATION: Hx of Present Illness: pt is coming from longterm had an unwitnessed fall about 15 minutes ago pt is acting at baseline for dementia. No blood thinners . Pt was found on the floor by staff, staff assisted pt to a chair. Staff reported dizziness and unsteady gait; Reason: Other:; Spine fracture, thoracic, traumatic; Clinical Question(s): Fracture Dislocation, Fracture/Dislocation TECHNIQUE: Noncontrast CT of the thoracic and lumbar spine was performed. Bone and soft tissue algorithms were reconstructed along with coronal and sagittal computations. Weight-based protocol using automatic tube modulation was used to optimize exposure parameters. RADIATION DOSE PARAMETERS: COMPARISON: FINDINGS: Thoracic Spine: No fractures or bone lesion. The alignment is maintained. Moderate disc degenerative disease throughout the thoracic spine. Soft tissues: No acute abnormality in the paravertebral soft tissues. Bibasilar atelectasis. Cardiomegaly. Lumbar Spine: No fractures or bone lesion. The alignment is maintained. Mild disc degenerative disease throughout the lumbar spine. Soft tissues: No acute abnormality in the paravertebral soft tissues. 2.3 cm left adrenal adenoma. Diverticulosis of the sigmoid colon. IMPRESSION: No compression fracture or subluxation of the thoracic and lumbar spine. CT Thoracic Spine W/O Contrast, CT Lumbar Spine W/O Contrast, CT Pelvis W/O Contrast Hx of Present Illness: pt is coming from longterm had an unwitnessed fall about 15 minutes ago pt is acting at baseline for dementia. No blood thinners . Pt was found on the floor by staff, staffassisted pt to a chair. Staff reported dizziness and unsteady gait; Reason: Other:; Spine fracture,thoracic, traumatic; Clinical Question(s): Fracture Dislocation TECHNIQUE: Spiral CT without IV contrast through the pelvis only formatted in 3 planes. Enteric contrast administered. Automatic tube modulation and/or iterative dose reconstruction were used to optimize exposure parameters. COMPARISON: None FINDINGS: GI tract: Diverticulosis of the sigmoid colon.. Reproductive organs: Status post hysterectomy. Bladder: Normal. Lymph nodes: No enlarged nodes. Peritoneum and mesentery: No ascites or pneumoperitoneum. Vascular: Normal. No aneurysm. Bones: No fracture or dislocation. Moderate bilateral hip osteoarthritis. Mild bilateral SI joint osteoarthritis. IMPRESSION: No fracture or dislocation. WSN: [id number] Ordering Physician: Uri Vazquez Dictated By: Bladimir Alonso MD Dictated Date/Time: 06/01/23 3:46 pm Reviewed By: Bladimir Alonso MD Signed By: Bladimir Alonso MD Signed Date/Time: 06/01/23 3:46 pm Transcribed By: ANDRAE Transcribed Date/Time: 06/01/23 3:36 pm * Exam Date Time Procedure Performing Provider Status 06/01/23 3:[address] Lumbar Spine W/O Contrast Meg Chavez; Auth (Verified) Notes: (CT Lumbar Spine W/O Contrast) Reason For Exam: Spine fracture, lumbar, traumatic;Other: RESULT: CT Lumbar Spine W/O Contrast CT Thoracic Spine W/O Contrast, CT Lumbar Spine W/O Contrast, CT Pelvis W/O Contrast INDICATION: Hx of Present Illness: pt is coming from longterm had an unwitnessed fall about 15 minutes ago pt is acting at baseline for dementia. No blood thinners . Pt was found on the floor by staff, staff assisted pt to a chair. Staff reported dizziness and unsteady gait; Reason: Other:; Spine fracture, thoracic, traumatic; Clinical Question(s): Fracture Dislocation, Fracture/Dislocation TECHNIQUE: Noncontrast CT of the thoracic and lumbar spine was performed. Bone and soft tissue algorithms were reconstructed along with coronal and sagittal computations. Weight-based protocol using automatic tube modulation was used to optimize exposure parameters. RADIATION DOSE PARAMETERS: COMPARISON: FINDINGS: Thoracic Spine: No fractures or bone lesion. The alignment is maintained. Moderate disc degenerative disease throughout the thoracic spine. Soft tissues: No acute abnormality in the paravertebral soft tissues. Bibasilar atelectasis. Cardiomegaly. Lumbar Spine: No fractures or bone lesion. The alignment is maintained. Mild disc degenerative disease throughout the lumbar spine. Soft tissues: No acute abnormality in the paravertebral soft tissues. 2.3 cm left adrenal adenoma. Diverticulosis of the sigmoid colon. IMPRESSION: No compression fracture or subluxation of the thoracic and lumbar spine. CT Thoracic Spine W/O Contrast, CT Lumbar Spine W/O Contrast, CT Pelvis W/O Contrast Hx of Present Illness: pt is coming from longterm had an unwitnessed fall about 15 minutes ago pt is acting at baseline for dementia. No blood thinners . Pt was found on the floor by staff, staffassisted pt to a chair. Staff reported dizziness and unsteady gait; Reason: Other:; Spine fracture,thoracic, traumatic; Clinical Question(s): Fracture Dislocation TECHNIQUE: Spiral CT without IV contrast through the pelvis only formatted in 3 planes. Enteric contrast administered. Automatic tube modulation and/or iterative dose reconstruction were used to optimize exposure parameters. COMPARISON: None FINDINGS: GI tract: Diverticulosis of the sigmoid colon.. Reproductive organs: Status post hysterectomy. Bladder: Normal. Lymph nodes: No enlarged nodes. Peritoneum and mesentery: No ascites or pneumoperitoneum. Vascular: Normal. No aneurysm. Bones: No fracture or dislocation. Moderate bilateral hip osteoarthritis. Mild bilateral SI joint osteoarthritis. IMPRESSION: No fracture or dislocation. WSN: [id number] Ordering Physician: Uri Vazquez Dictated By: Bladimir Alonso MD Dictated Date/Time: 06/01/23 3:46 pm Reviewed By: Bladimir Alonso MD Signed By: Bladimir Alonso MD Signed Date/Time: 06/01/23 3:46 pm Transcribed By: ANDRAE Transcribed Date/Time: 06/01/23 3:36 pm * Exam Date Time Procedure Performing Provider Status 06/01/23 3:[address] Thoracic Spine W/O Contrast Michele Chavez; [place] (Verified) Notes: (CT Thoracic Spine W/O Contrast) Reason For Exam: Spine fracture, thoracic, traumatic;Other: RESULT: CT Thoracic Spine W/O Contrast CT Thoracic Spine W/O Contrast, CT Lumbar Spine W/O Contrast, CT Pelvis W/O Contrast INDICATION: Hx of Present Illness: pt is coming from longterm had an unwitnessed fall about 15 minutes ago pt is acting at baseline for dementia. No blood thinners . Pt was found on the floor by staff, staff assisted pt to a chair. Staff reported dizziness and unsteady gait; Reason: Other:; Spine fracture, thoracic, traumatic; Clinical Question(s): Fracture Dislocation, Fracture/Dislocation TECHNIQUE: Noncontrast CT of the thoracic and lumbar spine was performed. Bone and soft tissue algorithms were reconstructed along with coronal and sagittal computations. Weight-based protocol using automatic tube modulation was used to optimize exposure parameters. RADIATION DOSE PARAMETERS: COMPARISON: FINDINGS: Thoracic Spine: No fractures or bone lesion. The alignment is maintained. Moderate disc degenerative disease throughout the thoracic spine. Soft tissues: No acute abnormality in the paravertebral soft tissues. Bibasilar atelectasis. Cardiomegaly. Lumbar Spine: No fractures or bone lesion. The alignment is maintained. Mild disc degenerative disease throughout the lumbar spine. Soft tissues: No acute abnormality in the paravertebral soft tissues. 2.3 cm left adrenal adenoma. Diverticulosis of the sigmoid colon. IMPRESSION: No compression fracture or subluxation of the thoracic and lumbar spine. CT Thoracic Spine W/O Contrast, CT Lumbar Spine W/O Contrast, CT Pelvis W/O Contrast Hx of Present Illness: pt is coming from longterm had an unwitnessed fall about 15 minutes ago pt is acting at baseline for dementia. No blood thinners . Pt was found on the floor by staff, staffassisted pt to a chair. Staff reported dizziness and unsteady gait; Reason: Other:; Spine fracture,thoracic, traumatic; Clinical Question(s): Fracture Dislocation TECHNIQUE: Spiral CT without IV contrast through the pelvis only formatted in 3 planes. Enteric contrast administered. Automatic tube modulation and/or iterative dose reconstruction were used to optimize exposure parameters. COMPARISON: None FINDINGS: GI tract: Diverticulosis of the sigmoid colon.. Reproductive organs: Status post hysterectomy. Bladder: Normal. Lymph nodes: No enlarged nodes. Peritoneum and mesentery: No ascites or pneumoperitoneum. Vascular: Normal. No aneurysm. Bones: No fracture or dislocation. Moderate bilateral hip osteoarthritis. Mild bilateral SI joint osteoarthritis. IMPRESSION: No fracture or dislocation. WSN: [id number] Ordering Physician: Uri Vazquez Dictated By: Bladimir Alonso MD Dictated Date/Time: 06/01/23 3:46 pm Reviewed By: Bladimir Alonso MD Signed By: Bladimir Alonso MD Signed Date/Time: 06/01/23 3:46 pm Transcribed By: ANDRAE Transcribed Date/Time: 06/01/23 3:36 pm * Exam Date Time Procedure Performing Provider Status 10/4/23 3:[address] Cervical Spine W/O Contrast Michele Chavez; [place] (Verified) Notes: (CT Cervical Spine W/O Contrast) Reason For Exam: Neck trauma, dangerous injury mechanism;Other: RESULT: CT Cervical Spine W/O Contrast CT Head/Brain W/O Contrast, CT Cervical Spine W/O Contrast INDICATION: Hx of Present Illness: pt is coming from longterm had an unwitnessed fall about 15 minutes ago pt is acting at baseline for dementia. No blood thinners . Pt was found on the floor by staff, staff assisted pt to a chair. Staff reported dizziness and unsteady gait; Reason: Trauma; Clinical Question(s): Subarachnoid Hemorrhage TECHNIQUE: Noncontrast head CT using axial technique was reconstructed in axial and coronal planes.Noncontrast spiral CT through the cervical spine was formatted in 3 planes. Automatic tube modulation was used for the cervical spine and iterative dose reconstruction was used for both the head and cervical spine to optimize scan parameters and image quality. COMPARISON: None. FINDINGS: [employer] Findings, Lines and Tubes: None. BRAIN AND EXTRA-AXIAL SPACES: No parenchymal hemorrhage, midline shift, or mass effect. Paredes-white matter differentiation is wellpreserved. No acute infarct. Ventricles, sulci, and basilar cisterns are normal. Mild low-density white matter changes. No subarachnoid hemorrhage. No subdural or epidural collection. CALVARIUM, SKULL BASE, AND SOFT TISSUES: No fractures or suspicious bony lesions. The paranasal sinuses and mastoid air cells are clear. Visualized orbits and globes are intact. The extracranial soft tissues are unremarkable. CERVICAL SPINE: No fracture. No acute osseous abnormalities. There is mild anterolisthesis of C4 on C5. No locked or perched facet. Mild multilevel degenerativedisc space narrowing and end plate irregularity. There is narrowing of the atlantodens interval with osteophyte formation. OTHER BONES: No acute abnormality. CERVICAL SOFT TISSUES AND LUNG APICES: Normal soft tissues. Visualized lung apices are clear. IMPRESSION: No acute abnormality of the head or cervical spine. Mild chronic small vessel ischemic changes. No cervical spine fracture or subluxation. Discogenic and facet degenerative disease throughout thecervical spine. WSN: [id number] Ordering Physician: Uri Vazquez Dictated By: Gavin PENA, Bladimir H Dictated Date/Time: 06/01/23 3:33 pm Reviewed By: Bladimir Alonso MD Signed By: Bladimir Alonso MD Signed Date/Time: 06/01/23 3:33 pm Transcribed By: ANDRAE Transcribed Date/Time: 06/01/23 3:26 pm * Exam Date Time Procedure Performing Provider Status 06/01/23 3:[address] Head/Brain W/O Contrast Herb Chavez n; Auth (Verified) Notes: (CT Head/Brain W/O Contrast) Reason For Exam: Trauma RESULT: CT Head/Brain W/O Contrast CT Head/Brain W/O Contrast, CT Cervical Spine W/O Contrast INDICATION: Hx of Present Illness: pt is coming from longterm had an unwitnessed fall about 15 minutes ago pt is acting at baseline for dementia. No blood thinners . Pt was found on the floor by staff, staff assisted pt to a chair. Staff reported dizziness and unsteady gait; Reason: Trauma; Clinical Question(s): Subarachnoid Hemorrhage TECHNIQUE: Noncontrast head CT using axial technique was reconstructed in axial and coronal planes.Noncontrast spiral CT through the cervical spine was formatted in 3 planes. Automatic tube modulation was used for the cervical spine and iterative dose reconstruction was used for both the head and cervical spine to optimize scan parameters and image quality. COMPARISON: None. FINDINGS: Stock[employer]ker View Findings, Lines and Tubes: None. BRAIN AND EXTRA-AXIAL SPACES: No parenchymal hemorrhage, midline shift, or mass effect. Paredes-white matter differentiation is wellpreserved. No acute infarct. Ventricles, sulci, and basilar cisterns are normal. Mild low-density white matter changes. No subarachnoid hemorrhage. No subdural or epidural collection. CALVARIUM, SKULL BASE, AND SOFT TISSUES: No fractures or suspicious bony lesions. The paranasal sinuses and mastoid air cells are clear. Visualized orbits and globes are intact. The extracranial soft tissues are unremarkable. CERVICAL SPINE: No fracture. No acute osseous abnormalities. There is mild anterolisthesis of C4 on C5. No locked or perched facet. Mild multilevel degenerativedisc space narrowing and end plate irregularity. There is narrowing of the atlantodens interval with osteophyte formation. OTHER BONES: No acute abnormality. CERVICAL SOFT TISSUES AND LUNG APICES: Normal soft tissues. Visualized lung apices are clear. IMPRESSION: No acute abnormality of the head or cervical spine. Mild chronic small vessel ischemic changes. No cervical spine fracture or subluxation. Discogenic and facet degenerative disease throughout thecervical spine. WSN: [id number] Ordering Physician: Uri Vazquez Dictated By: Bladimir Alonso MD Dictated Date/Time: 06/01/23 3:33 pm Reviewed By: Bladimir Alonso MD Signed By: Bladimir Alonso MD Signed Date/Time: 06/01/23 3:33 pm Transcribed By: ANDRAE Transcribed Date/Time: 06/01/23 3:26 pm Vital Signs Most recent to oldest [Reference Range]: 1 2 Oxygen Saturation [94-100 %] 97 % (06/01/23 8:57 PM) 98 % (06/01/23 1:01 PM) Pulse Rate [55-90 bpm] 67 bpm (06/01/23 8:57 PM) 76 bpm (06/01/23 1:01 PM) Blood Pressure [90-138/55-84 mm Hg] 130/ 64mm Hg (06/01/23 8:57 PM) 125/64mm Hg (06/01/23 1:01 PM) Respiratory Rate [16-30 br/min] 16 br/mi n (06/01/23 8:57 PM) 20 br/min (06/01/23 1:01 PM) Temperature [96.8-100.4 DegF] 98.6 DegF (06/01/23 8:57 PM) 98.1 DegF (06/01/23 1:01 PM) Mode of Delivery (Oxygen) Room air (06/01/23 8:57 PM) Room air (06/01/23 1:01 PM) Blood pressure sites Arm, right (06/01/23 8:57 PM) Arm, right (06/01/23 1:01 PM) Temperature Route Oral (06/01/23 8:57 PM) Oral (06/01/23 1:01 PM) Social History Social History Type Response Sex Female EKG study * Event Display: ECG 12-Lead Authored Date: Please click on pdf link to open report * Event Display: ECG 12-Lead Authored Date: Ventricular Rate: 68 BPM Atrial Rate: 68 BPM P-R Interval: 192 ms QRS Duration: 72 ms Q-T Interval: 376 ms QTC Calculation(Bazett): 399 ms P [place]: 22 degrees R [place]: -8 degrees T [place]: 7 degrees Normal sinus rhythm Minimal voltage criteria for LVH, may be normal variant ( R in aVL ) Borderline ECG When compared with ECG of 22-MAR-2023 18:54, No significant change was found Confirmed by HARMONY BEDOLLA MD ([id number]) on 06/01/2023 3:41:02 PM [place]: HARMONY BEDOLLA MD Patient Care team information Care Team Personnel Name: Rosa Mattson NP Position: [facility] Outreach Member Role: PCP Address: Address: [address] [place] [address] Internal [place], [place] [address] Name: Nicole Villanueva Position: [facility] ED TA [facility] Member Role: Putty Glazer Name: Royal Mendez RN Position: [facility] ED RN W/OE and Tasks Member Role: Patient Care Provider Name: Dez June MD Position: [facility] Resident Member Role: Admitting Physician Address: Address: [address] [place] [address] Name: Uri Diaz Position: [facility] Associate Professional Member Role: ED Physician Core Manager Address: Address: [address] [place] [address] Name: Anne-Marie Vincent Position: [facility] ED TA [facility] Member Role: Patient Care Provider
--- OUTSIDE RECORDS SUMMARY | 2023-08-25 23:33 | XMS_ITS | Continuity of Care Document ---
Author Name Unknown Organization [facility] ter Address [address] [place] [id number]- Care Team Providers Care Climatology Teacher Name Role Phone Rsoa Mattson NP Primary Care Physician Encounter [facility] Date(s): 03/31/23 - 03/31/[address] [address]- Encounter Diagnosis Fall(Final) - 03/31/23 Laceration of scalp(Final) - 03/31/23 Hematoma(Final) - 03/31/23 Discharge Disposition: A-D/C Home Attending Physician: Brandon Sen MD Admitting Physician: Brandon Sen MD Referring Physician: Not on Staff, Referring [...] Exam Date Time Procedure Performing Provider Status 03/31/23 4:[address] Cervical Spine W/O Contrast Zelda Vora; Auth (Verified) Notes: (CT Cervical Spine W/O Contrast) Reason For Exam: Neck trauma, dangerous injury mechanism;Other: RESULT: CT Cervical Spine W/O Contrast CT Head/Brain W/O Contrast, CT Cervical Spine W/O Contrast Reason: Trauma; Clinical Question(s): Subarachnoid Hemorrhage; Order Comment:. TECHNIQUE: Incremental CT without contrast through the head was formatted in axial and coronal planes. Spiral CT without contrast through the cervical spine was formatted in 3 planes. Weight-based protocol using automatic tube modulation was used to optimize exposure parameters. CTDIvol Body: 8.80 mGy, DLP Body: 212 mGy*cm. CTDIvol Head: 41.10 mGy, DLP Head: 672 mGy*cm. COMPARISON: 03/22/2023. FINDINGS: BRAIN and EXTRA-AXIAL SPACES: No parenchymal hemorrhage, [...] cells are clear. Status-post bilateral lens extraction. 3.6 x 1.1 cm scalp hematoma over the right parietal bone. CERVICAL SPINE: No fracture. No acute osseous abnormalities. Mild, multilevel degenerative change of the visualizedspinal multilevel intervertebral disc space height loss. Degenerative changes are most marked at C2-C4 intervertebral levels. Grade 1 anterolisthesis of C4 on C5. No locked or perched facet. OTHER BONES: No acute abnormality. CERVICAL SOFT TISSUES AND LUNG APICES: Clear lung apices. Left thyroid greater than 1.5 cm nodule. This measures up to approximately 1.8 cm craniocaudally oncoronal reconstructions, example series 304 image 18. IMPRESSION: No acute intracranial abnormality. No acute fracture of the cervical spine. Left thyroid nodule. Recommend outpatient thyroid ultrasound follow-up on outpatient basis for further evaluation, if not previously/elsewhere performed. Results were relayed by [employer] by Dr. Medina to Jason Pearson MD on 03/31/2023 6:16 AM. An actionable message (Yellow) has been communicated via the [employer] system on 03/31/2023 7:39 AM, Message ID [id number]. I have personally reviewed the images and I agree with this report. WSN: [id number] Ordering Physician: Jason Pearson Dictated By: Humphrey Medina MD Dictated Date/Time: 03/31/23 7:44 am Reviewed By: Lucia Smith MD Signed By: Lucia Smith MD Signed Date/Time: 03/31/23 7:49 am Transcribed By: ANDRAE Transcribed Date/Time: 03/31/23 6:16 am * Exam Date Time Procedure Performing Provider Status 03/31/23 4:[address] Head/Brain W/O Contrast Estela Vora; [place] (Verified) Notes: (CT Head/Brain W/O Contrast) Reason For Exam: Trauma RESULT: CT Head/Brain W/O Contrast CT Head/Brain W/O Contrast, CT Cervical Spine W/O Contrast Reason: Trauma; Clinical Question(s): Subarachnoid Hemorrhage; Order Comment:. TECHNIQUE: Incremental CT without contrast through the head was formatted in axial and coronal planes. Spiral CT without contrast through the cervical spine was formatted in 3 planes. Weight-based protocol using automatic tube modulation was used to optimize exposure parameters. CTDIvol Body: 8.80 mGy, DLP Body: 212 mGy*cm. CTDIvol Head: 41.10 mGy, DLP Head: 672 mGy*cm. COMPARISON: 03/22/2023. FINDINGS: BRAIN and EXTRA-AXIAL SPACES: No parenchymal hemorrhage, [...] cells are clear. Status-post bilateral lens extraction. 3.6 x 1.1 cm scalp hematoma over the right parietal bone. CERVICAL SPINE: No fracture. No acute osseous abnormalities. Mild, multilevel degenerative change of the visualizedspinal multilevel intervertebral disc space height loss. Degenerative changes are most marked at C2-C4 intervertebral levels. Grade 1 anterolisthesis of C4 on C5. No locked or perched facet. OTHER BONES: No acute abnormality. CERVICAL SOFT TISSUES AND LUNG APICES: Clear lung apices. Left thyroid greater than 1.5 cm nodule. This measures up to approximately 1.8 cm craniocaudally oncoronal reconstructions, example series 304 image 18. IMPRESSION: No acute intracranial abnormality. No acute fracture of the cervical spine. Left thyroid nodule. Recommend outpatient thyroid ultrasound follow-up on outpatient basis for further evaluation, if not previously/elsewhere performed. Results were relayed by [facility] by Dr. Medina to Jason Pearson MD on 03/31/2023 6:16 AM. An actionable message (Yellow) has been communicated via the [employer] system on 03/31/2023 7:39 AM, Message ID [id number]. I have personally reviewed the images and I agree with this report. WSN: [id number] Ordering Physician: Jason Pearson Dictated By: Humphrey Medina MD Dictated Date/Time: 03/31/23 7:44 am Reviewed By: Lucia Smith MD Signed By: Lucia Smith MD Signed Date/Time: 03/31/23 7:49 am Transcribed By: ANDRAE Transcribed Date/Time: 03/31/23 6:16 am Vital Signs Most recent to oldest [Reference Range]: 1 2 Oxygen Saturation [94-100 %] 99 % (03/31/23 9:45 AM) 99 % (03/31/23 5:19 AM) Pulse Rate [55-90 bpm] 85 bpm (03/31/23 9:45 AM) 75 bpm (03/31/23 5:19 AM) Blood Pressure [90-138/55-84 mm Hg] 129/ 66mm Hg (03/31/23 9:45 AM) 138/73mm Hg (03/31/23 5:19 AM) Respiratory Rate [16-30 br/min] 16 br/mi n (03/31/23 9:45 AM) 18 br/min (03/31/23 5:19 AM) Temperature [96.8-100.4 DegF] 97.5 DegF (03/31/23 9:45 AM) 98.1 DegF (03/31/23 5:19 AM) Mode of Delivery (Oxygen) Room air (03/31/23 9:45 AM) Room air (03/31/23 5:19 AM) Blood pressure sites Arm, right (03/31/23 5:19 AM) Temperature Route Oral (03/31/23 9:45 AM) Oral (03/31/23 5:19 AM) EKG study * Event Display: EKG Authored Date: [id number] Note * Jason Pearson MD: PERFORM Event Display: Patient Education Leaflets Authored Date: [id number] Fall??Prevention ?? [id number] Fall??Prevention Falls often take place due to [...] more often. Last Reviewed Date: 2021 ?? 0821-3049 [employer]. All rights reserved. This information is not intended as a substitute for professional medical care. Always follow your healthcare professional's instructions. ?? Patient Care team information Care Team Personnel Name: Rosa Mattson NP Position: [facility] Outreach Member Role: PCP Address: Address: [address] [place] [address] [place] [address]- Name: Sabra Ureña RN Position: [facility] ED RN W/OE and Tasks Member Role: Patient Care Provider Name: Jason Pearson MD Position: [facility] Resident Member Role: ED Resident Address: Address: [address] [place] [address] [place] [address]- Name: Brandon Sen MD Position: [facility] Resident Member Role: Admitting Physician Address: Address: [address] [place] [id number]- Name: Kee Alford Position: [facility] ED MACARENA HENRY
--- NOTE | 2023-08-25 23:39 | PC.NURSE ---
pt heather from [facility] for a fall. pt has hx of dementia. pt reports she had been walking out of the kitchen when she turned the corner and fell down. c collar in place by ems at this time. pt reports left shoulder pain at this time. pt denies neck pain. pt alert to self at this time. pt normal sinus on tele 70-72.
--- NOTE | 2023-08-25 23:52 | MHC.EDTECH ---
Patient came in by ambulance,patient placed on the playground monitor ,vitals were taken and EKG was completed. Patient has a C-Collar on at this time, will change patient into hospital attire once cleared, Call burk within reach.
[2023-08-25 23:55] LABS: Alanine Aminotransferase 10 U/L (0-31); Albumin Level 3.9 g/dL (3.5-5.0); Alkaline Phosphatase 71 U/L (39-117); Anion Gap 13 (12-20); Aspartate Amino Transferase 26 U/L (5-31); Bilirubin Total 0.7 mg/dL (0.0-1.0); Blood Urea Nitrogen 16 mg/dL (9-16); Calcium 9.2 mg/dL (8.4-10.2); Carbon Dioxide 25 mmol/L (22-29); Chloride 105 mmol/L (96-108); Creatinine Clr Calc Pharmacy 53.9; Estimated Glomerular Filt Rate > 60; Glucose Random 112 mg/dL (60-115); Potassium 4.3 mmol/L (3.3-5.1); Sodium 139 mmol/L (135-145); Total Protein 7.1 g/dL (6.5-8.0)
--- NOTE | 2023-08-26 00:09 | ED_ITS ---
HPI - General Adult General Chief complaint: Fall Stated complaint: fall Time Seen by Provider: 08/25/23 23:25 Source: patient and EMS Mode of arrival: EMS Limitations: altered mental status History of Present Illness HPI narrative: Patient comes to the emergency room complaining of a fall. Patient states that she has mild neck pain posteriorly. Patient states that she was walking in a half-way facility, she had a mechanical fall, landed backwards. Per EMS, the nursing facility states that the patient is not on any blood thinners. Patient states that she has mild left-sided shoulder pain. Patient denies loss of consciousness. However, patient has history of dementia, unclear how accurate her history is. The [facility] reported that lately the patient has had multiple falls. Related Data Allergies Allergy/AdvReac Type Severity Reaction Status Date / Time No Known Allergies Allergy Verified 08/25/23 23:17 Review of Systems 2 Review of Systems: Constitutional : No Weight loss, No Fever, No Chills, No Night Sweats, No Fatigue, No Malaise ENT/Mouth : No Hearing loss, No Ear Pain, No Nasal Congestion, No Sinus Pain, No Hoarseness, No sore throat, No Rhinorrhea, No Swallowing Difficulty Eyes: No Eye Pain, No Swelling, No Redness, No Foreign Body, No Discharge, No Vision Changes Cardiovascular : No Chest Pain, No SOB, No Dyspnea on Exertion, No Orthopnea, No Edema, No Palpitations Respiratory : No Cough, No Sputum, No Wheezing, No Smoke Exposure, No Dyspnea Gastrointestinal : No Nausea, No Vomiting, No Diarrhea, No Constipation, No abdominal Pain, No Hematochezia, No Melena Genitourinary : no irregular bleeding, No Dysuria, No Urinary Frequency, No Hematuria, No Urinary Incontinence, No Urgency, No Flank Pain, No Urinary Flow Changes, No Hesitancy Musculoskeletal : Complaining of left shoulder pain, complaining of posterior neck pain, No Myalgias, No Joint Swelling Skin : No Skin Lesions, No rash Neuro : No Weakness, No Numbness, No Paresthesias, No Loss of Consciousness, No Dizziness, No Headache Psych : No Anxiety/Panic, No Depression, No SI/HI/AH/VH, No Social Issues, Heme/Lymph: No Bruising, No Bleeding,No Lymphadenopathy Endocrine : No Polyuria, No Polydipsia, No Temperature Intolerance [facility] Past Medical History Medical History (Updated 08/26/23 @ 03:14 by Kenia Larson MD) Dementia Social History Social History Smoked in Last 30 Days: No Use of substances other than those prescribed or required for medical reasons: No Advance Directives: No Advance Directives Information Provided: Yes Physical Exam ED Vital Signs: Vital Signs - 24 hr 08/25/23 23:17 08/25/23 23:27 08/26/23 01:02 Temperature 98.2 F 97.8 F Pulse Rate 72 87 Respiratory Rate 18 18 Blood Pressure 138/79 136/62 Pulse Oximetry 95 98 Oxygen Delivery Method Room Air Room Air 08/26/23 02:44 Temperature 97.7 F Pulse Rate 69 Respiratory Rate 16 Blood Pressure 138/61 Pulse Oximetry 98 Oxygen Delivery Method Room Air BMI result Body Mass Index 22.6 Const Other: Appearance: Alert. No acute distress Eyes: Pupils equal, round and reactive to light. ENT: Pharynx normal. Neck: Patient on C-collar, no palpable step-offs, pain to palpation throughout the entire C-spine CVS: Normal heart rate and rhythm. Pulses normal. Normal S1 and S2 Respiratory: No respiratory distress. Breath sounds normal. No Wheezing. No rales Abdomen: Soft and nontender. No rigidity. No distention. Skin: Skin warm and dry. Normal skin color. Normal skin turgor. Extremities: Patient able to flex and extend the hips, no pain. Patient able to abduct arms, no significant pain, mild discomfort in the left shoulder Neuro: moving all extremities. No slurred speech. CN 2 through 12 grossly intact Psych: calm, cooperative, normal affect Course Course Course Narrative: -all of patient's labs and imaging pending Medications Administered Discontinued Medications Generic Name Dose Route Start Last Admin Trade Name Jade PRN Reason Stop Dose Admin Acetaminophen 650 mg 08/26/23 00:13 08/26/23 00:31 Acetaminophen 325 Mg Tablet PO 08/26/23 00:14 650 mg ONCE ONE Administration Medical Decision Making Medical Decision Making [facility] Narrative: -my interpretation of CT scan of the head: No intracranial bleed. -my interpretation of labs: Normal hematology, normal chemistry -urinalysis pending -shoulder x-ray my interpretation: no fx -patient's shoulder x-ray has been pending for more than 3 hours. Patient has full range of motion, I do not believe the patient has a fracture. Patient getting very restless, wanted to be discharged. Differential Diagnosis Differential Diagnoses: The differential diagnosis associated with the presentation includes (Mechanical fall, intracranial bleed, cervical spine fracture, shoulder dislocation) Admission/Observation Consideration of admission/observation: Escalation of care including admission/observation considered (Given patient's history and presentation on arrival, admission was considered) Lab Data MDM Lab Attestation statement: I reviewed the patient's lab results. 08/25/23 23:24 08/25/23 23:24 Labs: Lab Results 08/25/23 08/26/23 Range/Units 23:24 01:04 WBC 9.1 (4.8-10.8) X10*3/uL RBC 4.33 (4.20-5.50) X10*6/uL Hgb 12.8 (12.0-16.0) g/dl Hct 38.5 (37.0-47.0) % MCV 88.9 (80.0-98.0) fL MCH 29.6 (27.0-33.0) pg MCHC 33.2 (31.0-35.0) g/dl RDW 12.9 (11.0-16.0) % Plt Count 202 (160-400) X10*3/uL MPV 9.4 (9.4-12.3) fL Immature Gran % (Auto) 0.3 (0.0-0.4) % Neut % (Auto) 75.4 H (45-73) % Lymph % (Auto) 17.4 L (20-40) % Josephine % (Auto) 6.1 (2-11) % Eos % (Auto) 0.6 (0-4) % Baso % (Auto) 0.2 (0-2) % Lymph # (Auto) 1.6 (1.2-4.9) X10*3/uL Josephine # (Auto) 0.6 (0.1-1.2) X10*3/uL Eos # (Auto) 0.1 (0.0-0.4) X10*3/uL Baso # (Auto) 0.0 (0.0-0.2) X10*3/uL Abs Immat Gran (auto) 0.03 (0.00-0.03) X10*3/uL Absolute Neuts (auto) 6.9 (2.0-8.3) x10*3/uL Absolute Nucleated RBC 0.000 (0.0-0.012) X10*3/uL Nucleated RBC % (auto) 0.0 (0.0-0.2) /100WBC Sodium 139 (135-145) mmol/L Potassium 4.3 (3.3-5.1) mmol/L Chloride 105 (96-108) mmol/L Carbon Dioxide 25 (22-29) mmol/L Anion Gap 13 (12-20) BUN 16 (9-16) mg/dL Creatinine 0.73 (0.5-1.4) mg/dL Estim Creat Clear Calc 53.9 Estimated GFR > 60 Random Glucose 112 (60-115) mg/dL Calcium 9.2 (8.4-10.2) mg/dL Total Bilirubin 0.7 (0.0-1.0) mg/dL AST 26 (5-31) U/L ALT 10 (0-31) U/L Alkaline Phosphatase 71 (39-117) U/L Total Protein 7.1 (6.5-8.0) g/dL Albumin 3.9 (3.5-5.0) g/dL Urine Color Yellow Urine Appearance Clear Urine pH 5.0 (5.0-9.0) Ur Specific [place] 1.025 (1.005-1.025) Urine Protein Negative (Neg-Trace) mg/dL Urine Glucose (UA) Negative (Negative) mg/dL Urine Ketones Negative (Negative) mg/dL Urine Blood Negative (Negative) Urine Nitrite Negative (Negative) Ur Leukocyte Esterase Negative (Negative) Urine RBC 0-2 (0-2) /HPF Urine WBC 0-5 (0-5) /HPF Ur Squamous Epith Cells 0-2 (0-2) /HPF Urine Bacteria None Seen (None Seen) Hyaline Casts 0-2 (0-2) /LPF Independent Interpretation I performed an independent interpretation of an: CT Scan Radiology Impression Discussion of test interpretation with radiology: I have reviewed the radiologist's reading. Radiologist Impression: [address] [address] [address] Scan Report Signed Patient: Amaya Harley MR#: [id number] : 1945 Acct:[id number] Age/Sex: 77 / F ADM Date: 08/25/23 Loc: HO.ED Attending Dr: Ordering Physician: Lien Davies Date of Service: 08/25/23 Procedure(s): CT cervical spine wo IV con Accession Number(s): [id number] cc: Karli Graham RESOURCE TECHNICIAN; Lien Davies~ EXAMINATION: CT HEAD WITHOUT CONTRAST CT CERVICAL SPINE WITHOUT CONTRAST CLINICAL INFORMATION: Fall. Pain. COMPARISON: None available. TECHNIQUE: Contiguous axial imaging was performed through the head and cervical spine without intravenous administration of contrast. Sagittal and coronal reformatted images also obtained. This CT examination was performed using dose optimization techniques as appropriate, variously including the following: *Automated exposure control *Adjustment of mA and/or kV according to patient size (this includes techniques or standardized protocols for targeted exams where dose is matched to indication/reason for exam; i.e. extremities or head) *Use of iterative reconstruction technique DLP: 566 mGy-cm FINDINGS: There is cerebral volume loss with prominence of the lateral and the third ventricles. The cortical sulci are widened appropriately. The fourth ventricle and basal cisterns are normally outlined. There is moderate bilateral periventricular and central white matter diminished attenuation. There is no acute territorial defect, hemorrhage or midline shift. The extra-axial spaces are unremarkable. Calvarium: Intact. Maxillofacial sinuses and mastoids: Clear as visualized. Cervical spine: The alignment is normal. There is diffuse mild cervical disc degenerative change with loss of disc space, endplate change and posterior osteophytes associated with diffuse facet osteoarthritic hypertrophic change with multilevel minimal spinal canal and mild neuroforaminal narrowing. The bony structures are osteopenic. No fracture is seen. There is a 1.3 cm low-density left thyroid nodule. The visualized upper lung lyle are clear. CT/CT cervical spine wo IV con IMPRESSION: 1. No acute intracranial process seen. 2. Moderate cerebral volume loss with chronic small vessel ischemic changes. 3. There is no acute cervical spine fracture or malalignment. There are degenerative disc changes and facet joint arthropathy throughout cervical spine. Critical Care Time Critical Care Time Critical Care Time: Yes Total Critical Care Time: 60 Attestation: I have personally provided critical care time. Time includes review of lab data, radiology results, discussion with consultants, and monitoring for potential decompensation. Intervention performed as documented. Discharge Plan Discharge Clinical Impression: Fall, Multiple contusions Patient Disposition: Home, Self-Care Instructions: Fall Prevention for Older Adults (ED) Additional Instructions: Please follow-up with your primary care physician tomorrow. If you have any worsening or new symptoms, please return to the emergency room or call 911
[2023-08-26] MEDS: Acetaminophen 325 MG TABLET 650 MG PO (00:31)
[2023-08-26 01:02] VITALS: BP 136/62; PULSE 87; RESP 18; TEMP 36.6; O2SAT 98
--- NOTE | 2023-08-26 01:05 | MHC.EDTECH ---
Assisted Anette NUNEZ with a straight cath, urine sample collected and sent to lab, patient was cleaned and repositioned to comfort.
--- NOTE | 2023-08-26 01:06 | PC.NURSE ---
pt straight cath per provider order. pt tolerated well. pt voided 150ml of yellow urine. urine sample obtained and sent to lab.
[2023-08-26 01:12] LABS: Appearance Urine Clear; Color Urine Yellow; Glucose Urine UA Negative (Negative); Leukocyte Esterase Urine Negative (Negative); Nitrite Urine Negative (Negative); Specific Gravity - Urine 1.025 (1.005-1.025); Urine Blood Negative (Negative); Urine Ketones Negative (Negative); Urine Protein Negative (Neg-Trace)
[2023-08-26 01:24] LABS: Bacteria Urine None Seen (None Seen); Hyaline Casts Urine 0-2 /LPF (0-2); RBC Urine 0-2 /HPF (0-2); Squamous Epithelial Cell Urine 0-2 /HPF (0-2); WBC Urine 0-5 /HPF (0-5)
[2023-08-26 02:44] VITALS: BP 138/61; PULSE 69; RESP 16; TEMP 36.5; O2SAT 98
--- NOTE | 2023-08-26 02:44 | MHC.EDTECH ---
Hourly rounds and vitals completed,
--- NOTE | 2023-08-26 03:32 | PC.NURSE ---
attempted to give living facility report on pt. 3x no answer.
--- NOTE | 2023-08-26 03:42 | PC.NURSE ---
ems at bedside to transport pt to facility. report given to ems.
== END 2023-08-26 03:44 | disposition home or self-care (01) ==
PROVIDERS: Emergency Provider Emergency Medicine; PCP Nurse Practitioner Gerontology
DX: S10.93XA Contusion of unspecified part of neck, initial encounter (principal); S00.93XA Contusion of unspecified part of head, initial encounter; R51.9 Headache, unspecified; R07.89 Other chest pain; M54.2 Cervicalgia; M25.512 Pain in left shoulder; W01.10XA Fall on same level from slipping, tripping and stumbling with subsequent striking against unspecified object, initial encounter; Y93.9 Activity, unspecified; Y92.099 Unspecified place in other non-institutional residence as the place of occurrence of the external cause; Y99.9 Unspecified external cause status; Z79.899 Other long term (current) drug therapy
CPT/HCPCS: 36415; 51701; 70450; 72125; 73030; 80053; 81001; 85025; 93005; 99284; 99285

== ENCOUNTER → 2023-08-25 23:44 | Outpatient (BNV) | payer MEDICARE, SELFPAY | PROVIDERS: Emergency Provider Emergency Medicine; PCP Nurse Practitioner Gerontology; Visit Provider Internal Medicine | DX: R94.31 Abnormal electrocardiogram [ECG] [EKG] (principal) | CPT/HCPCS: 93010 ==